=== PATIENT | male | born 1980 | race Caucasian/White ===

== ENCOUNTER 2024-02-18 19:17 | Emergency (ER) | payer BC ==
--- NOTE | 2024-02-18 19:55 | ED ---
Animal Bite HPI - General Chief Complaint: Animal Bite Stated Complaint: dog bite Time Seen by Provider: 02/18/24 19:37 Source: patient Mode of arrival: ambulatory Limitations: no limitations - History of Present Illness Initial Comments: 43-year-old male presenting to the ED with a chief complaint of dog bite to his left hand. Patient states that his dogs were fighting and he attempted to break them up. While they are fighting he stuck his hand in between both dogs and one of the dogs ended up biting his left hand prompting presentation to the ED for further evaluation. Reports that his dogs were both acting normally. States that they are fully vaccinated, including rabies. No other injuries at this time. Tetanus status up-to-date. No other complaints. - Related Data Previous Rx's Medication Instructions Recorded Doxycycline [Vibramycin] 100 mg PO BID 14 Days #28 capsule 02/18/24 Allergies Allergy/AdvReac Type Severity Reaction Status Date / Time Penicillins AdvReac Unknown Verified 02/18/24 19:33 Childhood Review of Systems ROS Statement: Those systems with pertinent positive or pertinent negative responses have been documented in the HPI. ROS Other: All systems not noted in ROS Statement are negative. Past Medical History Past Medical History: No Reported History History of Any Multi-Drug Resistant Organisms: None Reported Past Surgical History: No Surgical Hx Reported Past Psychological History: No Psychological Hx Reported Smoking Status: Current every day smoker Past Alcohol Use History: None Reported Past Drug Use History: None Reported General Exam Limitations: no limitations General appearance: alert Eye exam: Present: normal appearance Neck exam: Present: normal inspection Respiratory exam: Present: normal lung sounds bilaterally Cardiovascular Exam: Present: regular rate, normal rhythm GI/Abdominal exam: Present: soft Extremities exam: Present: other (Left hand with large skin tear/puncture wound on the dorsal surface measuring approx 4 cm long 3 cm wide. with some smaller superficial puncture wounds.) Neurological exam: Present: alert, oriented X3 Skin exam: Present: warm, dry Course Vital Signs 02/18/24 19:30 Temperature 98 F Pulse Rate 90 Respiratory 18 Rate Blood Pressure 138/102 O2 Sat by Pulse 97 Oximetry Procedures - Laceration Laceration #1 Site: hand Size (cm): 4 Description: irregular Depth: simple, single layer Anesthesia Technique: local infiltration Amount (mls): 2 Pre-repair: wound explored, irrigated extensively, deep structures intact Type of Sutures: nylon Size of Sutures: 4-0 Number of Sutures: 2 Technique: simple, interrupted Patient Tolerated Procedure: well, no complications Medical Decision Making - Medical Decision Making Was pt. sent in by a medical professional or institution (SPENCER Mathews, CERTIFICATION AND SELECTION SPECIALIST, urgent care, hospital, or group home...) When possible be specific @ -No Did you speak to anyone other than the patient for history (EMS, parent, family, police, friend...)? What history was obtained from this source @ -No Did you review nursing and triage notes (agree or disagree)? Why? @ -I reviewed and agree with nursing and triage notes Were old charts reviewed (outside hosp., previous admission, EMS record, old EKG, old radiological studies, urgent care reports/EKG's, group home records)? Report findings @ -No old charts were reviewed Differential Diagnosis (chest pain, altered mental status, abdominal pain women, abdominal pain men, vaginal bleeding, weakness, fever, dyspnea, syncope, headache, dizziness, GI bleed, back pain, seizure, CVA, palpatations, mental health, musculoskeletal)? @ -Differential Musculoskeletal Muscular strain, contusion, ligament sprain, fracture, arthritis, septic arthritis, bursitis, cellulitis, muscle spasm, nerve compression, DVT, arterial occlusion, herpes zoster, electrolyte abnormality, tumor.... This is not meant to be in all inclusive list EKG interpreted by me (3pts min.). @ -None X-rays interpreted by me (1pt min.). @ -None done CT interpreted by me (1pt min.). @ -None done U/S interpreted by me (1pt. min.). @ -None done What testing was considered but not performed or refused? (CT, X-rays, U/S, labs)? Why? @ -None What meds were considered but not given or refused? Why? @ -None Did you discuss the management of the patient with other professionals (professionals i.e. SPENCER Mathews, CERTIFICATION AND SELECTION SPECIALIST, lab, RT, psych nurse, clinical social worker, poultry helper, teacher, fiscal officer, case management director)? Give summary @ -No Was smoking cessation discussed for >3mins.? @ -No Was critical care preformed (if so, how long)? @ -No Were there social determinants of health that impacted care today? How? (Homeles sness, low income, unemployed, alcoholism, drug addiction, transportation, low edu. Level, literacy, decrease access to med. care, halfway, rehab)? @ -No Was there de-escalation of care discussed even if they declined (Discuss DNR or withdrawal of care, Hospice)? DNR status @ -No What co-morbidities impacted this encounter? (DM, HTN, Smoking, COPD, CAD, Cancer, CVA, ARF, Chemo, Hep., AIDS, mental health diagnosis, sleep apnea, morbid obesity)? @ -None Was patient admitted / discharged? Hospital course, mention meds given and route, prescriptions, significant lab abnormalities, going to OR and other pertinent info. @ -Discharge 43-year-old male presenting to the ED with a chief complaint of dog bite to his left hand. Was trying to break up his dogs. Dogs are fully vaccinated including rabies. Upon reevaluation, patient reports unsure what his tetanus status is, therefore this was updated. X-ray revealed no evidence of acute fractures. On examination did have a large gaping wound to the dorsal surface of his left hand. This was loosely approximated. For further details please see the procedure note. Prior to procedure, this was soaked in sterile saline and Betadine solution. Also had extensive irrigation with 2 L of sterile saline/Betadine solution. Does note allergy to penicillins and therefore, discharged home with prescription for doxycycline. Provided referral to see hand. X-ray showed no acute fracture or dislocation however some soft tissue swelling with multiple small foci of subcu gas with clustered radiodensities suggestive of foreign bodies. Discussed close return precautions with patient and family who verbalized agreement. Undiagnosed new problem with uncertain prognosis? @ -No Drug Therapy requiring intensive monitoring for toxicity (Heparin, Nitro, Insulin, Cardizem)? @ -No Were any procedures done? @ -No Diagnosis/symptom? @ -Dog bite, left hand Acute, or Chronic, or Acute on Chronic? @ -Acute Uncomplicated (without systemic symptoms) or Complicated (systemic symptoms)? @ -Uncomplicated Side effects of treatment? @ -No Exacerbation, Progression, or Severe Exacerbation? @ -No Poses a threat to life or bodily function? How? (Chest pain, [place], [place], pneumonia, PE, COPD, DKA, ARF, appy, cholecystitis, CVA, Diverticulitis, Homicidal, Suicidal, threat to staff... and all critical care pts) @ -Possibly however at this time unlikely. Disposition Clinical Impression: Dog bite Disposition: HOME SELF-CARE Condition: Good Instructions (If sedation given, give patient instructions): Animal Bite (ED), Care For Your Stitches (ED) Additional Instructions: Please return to the Emergency Department if symptoms worsen or any other concerns. Please follow-up with orthopedic hand surgery. Take antibiotics as prescribed. Monitor for signs of infection including redness, warmth, swelling, increasing pain, fever. Please return in 10 to 14 days for suture removal. Prescriptions: Doxycycline [Vibramycin] 100 mg PO BID 14 Days #28 capsule Is patient prescribed a controlled substance at d/c from ED?: No Referrals: Gustavo Lemus MD [Primary Care Provider] - 1-2 days Nata Fields DO [Doctor of Osteopathic Medicine] - 1-2 days Time of Disposition: 22:05
[2024-02-18] MEDS: MORPHINE SULFATE 4 MG/ML SYRINGE IM STA (19:58)
[2024-02-18 20:05] VITALS: RESP 18
[2024-02-18] MEDS: DIPH,PERTUS(ACELL)TETVAC-LF 0.5 ML VIAL IM ONE (20:11)
[2024-02-18] MEDS: ACETAMINOPHEN TAB 500 MG TAB PO STA (20:49)
--- NOTE | 2024-02-18 21:20 | XR ---
EXAMINATION TYPE: XR hand complete LT DATE OF EXAM: 02/18/2024 8:08 PM CLINICAL INDICATION:Male, 43 years old with history of s/p dog bite r/o fx; [facility] COMPARISON: None TECHNIQUE: 3 views left hand. FINDINGS: Osseous mineralization appears appropriate. No destructive bony lesion. No acute fracture or dislocat ion. Joint spaces are maintained. There is soft tissue swelling with multiple small foci of subcutane ous gas along the dorsum of the hand, as well as a cluster of tiny radiodensities which project betwe en the mid metacarpals of the second and third digits. These could be calcifications or other foreign debris, probably not metallic. IMPRESSION: 1. No fracture or dislocation. 2. Soft tissue swelling with multiple small foci of subcutaneous gas along the dorsum of the hand. C luster of tiny radiodensities suggestive of foreign bodies.
[2024-02-18] MEDS: BACITRACIN OINT 1 EACH PACKET TOPICAL ONE (21:56)
[2024-02-18] MEDS: KETOROLAC 15 MG/ML 1 ML VIAL IM STA (21:56)
[2024-02-18] MEDS: DOXYCYCLINE 100 MG CAP PO STA (22:15)
[2024-02-18 22:35] VITALS: BP 140/86; PULSE 88; TEMP 98.1
== END 2024-02-18 22:25 | disposition home or self-care (01) ==
LOC: EC 19:17
DX: S61.452A Open bite of left hand, initial encounter (principal); F17.200 Nicotine dependence, unspecified, uncomplicated; Z88.0 Allergy status to penicillin; Z23 Encounter for immunization; W54.0XXA Bitten by dog, initial encounter
CPT/HCPCS: 73130; 90715; 99284; 90471; 96372 ×2; 12002; J2270; J1885

== ENCOUNTER 2024-02-20 17:58 | Inpatient (IN) | payer BC ==
[2024-02-20] MEDS ORDERED: VANCOMYCIN 1,000 MG in SODIUM CHLORIDE 0.9% 250 ML IVPB STA (18:25)
[2024-02-20] MEDS ORDERED: VANCOMYCIN IV PER PHARMACY 1 EACH MISC MISCELLANE PRN (18:30)
[2024-02-20] MEDS: AMPICILLIN-SULBACTAM 3 GM in SODIUM CHLORIDE 0.9% 100 ML IVPB STA (19:34)
[2024-02-20 19:58] LABS: Basophils # (A) 0.1 k/uL (0-0.2); Basophils % (A) 1 %; Eosinophils # (A) 0.2 k/uL (0-0.7); Eosinophils % (A) 2 %; HCT 40.5 % (39.0-53.0); HGB 13.9 gm/dL (13.0-17.5); Lymphocytes % (A) 21 %; MCH 29.4 pg (25.0-35.0); MCHC 34.4 g/dL (31.0-37.0); MCV 85.5 fL (80.0-100.0); Mean Platelet Volume 7.5; Monocytes # (A) 0.6 k/uL (0-1.0); Monocytes % (A) 6 %; Neutrophils # (A) 6.5 k/uL (1.3-7.7); Neutrophils % (A) 69 %; Platelet Count 270 k/uL (150-450); RBC 4.73 m/uL (4.30-5.90); RDW 13.3 % (11.5-15.5); WBC 9.4 k/uL (3.8-10.6)
[2024-02-20] MEDS: VANCOMYCIN 1,750 MG in SODIUM CHLORIDE 0.9% 500 ML 500 ML IVPB STA (20:22)
[2024-02-20 21:09] LABS: ALT 27 U/L (4-49); AST 31 U/L (17-59); African American GFR (CKD) >90 (>60 ml/min/1.73 sqM); Albumin 3.8 g/dL (3.5-5.0); Alkaline Phosphatase 69 U/L (38-126); Anion Gap 8 mmol/L; Blood Urea Nitrogen 17 mg/dL (9-20); C Reactive Protein 8.9 mg/dL (<1.0); Calcium 9.3 mg/dL (8.4-10.2); Carbon Dioxide 23 mmol/L (22-30); Chloride 106 mmol/L (98-107); Glucose 109 mg/dL (74-99); Non-African American GFR(CKD) >90 (>60 ml/min/1.73 sqM); Potassium 4.1 mmol/L (3.5-5.1); Sodium 137 mmol/L (137-145); Total Bilirubin 0.4 mg/dL (0.2-1.3); Total Protein 6.3 g/dL (6.3-8.2)
[2024-02-20] MEDS: MORPHINE SULFATE 4 MG/ML SYRINGE IVP STA (21:23)
--- NOTE | 2024-02-20 22:48 | ED ---
General Adult HPI - General Chief complaint: Extremity Injury, Upper Stated complaint: Swelling, infection of stitches in L hand Source: patient Mode of arrival: ambulatory Limitations: no limitations - History of Present Illness Initial comments: 43-year-old male seen by myself 2 days ago secondary to dog bite on his hand. At this time patient sustained a dog bite to his left hand secondary to trying to stop both of his dogs from fighting. On presentation he did have a large gaping wound to his left hand which was loosely approximated with 2 simple interrupted sutures. Was started on doxycycline outpatient secondary to unknown allergy to penicillins in the past. Today, patient presenting due to increased pain in his hand with additional warmth swelling and redness. Does note some chills as well however denies fevers. No other complaints at this time. - Related Data Previous Rx's Medication Instructions Recorded Doxycycline [Vibramycin] 100 mg PO BID 14 Days #28 capsule 02/18/24 Allergies Allergy/AdvReac Type Severity Reaction Status Date / Time Penicillins AdvReac Unknown Verified 02/20/24 18:05 Childhood Review of Systems ROS Statement: Those systems with pertinent positive or pertinent negative responses have been documented in the HPI. ROS Other: All systems not noted in ROS Statement are negative. Past Medical History Past Medical History: No Reported History History of Any Multi-Drug Resistant Organisms: None Reported Past Surgical History: No Surgical Hx Reported Past Psychological History: No Psychological Hx Reported Smoking Status: Current every day smoker Past Alcohol Use History: None Reported Past Drug Use History: None Reported General Exam Limitations: no limitations General appearance: alert, in no apparent distress Eye exam: Present: normal appearance Neck exam: Present: normal inspection Respiratory exam: Present: normal lung sounds bilaterally Cardiovascular Exam: Present: regular rate GI/Abdominal exam: Present: soft Extremities exam: Present: other (On the dorsal surface of the left hand there are 2 simple interrupted sutures with a loosely approximated wound. Sutures appear intact. There is no purulent discharge. However, there is some surrounding erythema warmth and edema on the dorsal aspect of his hand.) Neurological exam: Present: alert, oriented X3 Skin exam: Present: warm, dry Course Vital Signs 02/20/24 18:03 Temperature 98.0 F Pulse Rate 96 Respiratory 18 Rate Blood Pressure 148/81 O2 Sat by Pulse 98 Oximetry Medical Decision Making - Medical Decision Making Was pt. sent in by a medical professional or institution (SPENCER Mathews, COLOR CONSULTANT, urgent care, hospital, or residential...) When possible be specific @ -No Did you speak to anyone other than the patient for history (EMS, parent, family, police, friend...)? What history was obtained from this source @ -No Did you review nursing and triage notes (agree or disagree)? Why? @ -I reviewed and agree with nursing and triage notes Were old charts reviewed (outside hosp., previous admission, EMS record, old EKG, old radiological studies, urgent care reports/EKG's, residential records)? Report findings @ -I reviewed prior charts as it was me who saw him last. For further details please see my prior notes. Differential Diagnosis (chest pain, altered mental status, abdominal pain women, abdominal pain men, vaginal bleeding, weakness, fever, dyspnea, syncope, headache, dizziness, GI bleed, back pain, seizure, CVA, palpatations, mental health, musculoskeletal)? @ -Differential Musculoskeletal Muscular strain, contusion, ligament sprain, fracture, arthritis, septic arthritis, bursitis, cellulitis, muscle spasm, nerve compression, DVT, arterial occlusion, herpes zoster, electrolyte abnormality, tumor.... This is not meant to be in all inclusive list EKG interpreted by me (3pts min.). @ -None X-rays interpreted by me (1pt min.). @ -None done CT interpreted by me (1pt min.). @ -None done U/S interpreted by me (1pt. min.). @ -None done What testing was considered but not performed or refused? (CT, X-rays, U/S, labs)? Why? @ -None What meds were considered but not given or refused? Why? @ -None Did you discuss the management of the patient with other professionals (professionals i.e. SPENCER Mathews, COLOR CONSULTANT, lab, RT, psych nurse, social welfare administrator, energy conservation engineer, teacher, desk officer, immigration case worker)? Give summary @ -Case discussed with Dr. Lemus, who accepts admission and is in agreement with plan of care. Was smoking cessation discussed for >3mins.? @ -No Was critical care preformed (if so, how long)? @ -No Were there social determinants of health that impacted care today? How? (Homelessness, low income, unemployed, alcoholism, drug addiction, transportation, low edu. Level, literacy, decrease access to med. care, halfway, rehab)? @ -No Was there de-escalation of care discussed even if they declined (Discuss DNR or withdrawal of care, Hospice)? DNR status @ -No What co-morbidities impacted this encounter? (DM, HTN, Smoking, COPD, CAD, Cancer, CVA, ARF, Chemo, Hep., AIDS, mental health diagnosis, sleep apnea, morbid obesity)? @ -None Was patient admitted / discharged? Hospital course, mention meds given and route , prescriptions, significant lab abnormalities, going to OR and other pertinent info. @ -Admission 43-year-old male presented to the ED with infection of dog bite to his left hand previously seen 2 days ago on outpatient doxycycline. Laboratory studies reviewed. CBC shows no elevation in white blood cell count. Chemistry panel unremarkable. CRP elevated at 8.9. Vital signs stable and afebrile. Patient started on Unasyn and vancomycin here in the ED. Although patient did note an unknown allergy to penicillins, patient had no reaction to these antibiotics. Patient will be continued on these antibiotics and admitted with consult placed to Dr. Fields of hand surgery. Discussed plan of care with patient who is in agreement. Undiagnosed new problem with uncertain prognosis? @ -No Drug Therapy requiring intensive monitoring for toxicity (Heparin, Nitro, Insulin, Cardizem)? @ -No Were any procedures done? @ -No Diagnosis/symptom? @ -Status post dog bite to left hand, infection with failure of outpatient antibiotic treatment Acute, or Chronic, or Acute on Chronic? @ -Acute Uncomplicated (without systemic symptoms) or Complicated (systemic symptoms)? @ -Complicated Side effects of treatment? @ -No Exacerbation, Progression, or Severe Exacerbation? @ -No Poses a threat to life or bodily function? How? (Chest pain, [place], [place], pneumonia, PE, COPD, DKA, ARF, appy, cholecystitis, CVA, Diverticulitis, Homicidal, Suicidal, threat to staff... and all critical care pts) @ -Possibly - Lab Data Result diagrams: 02/20/24 19:06 02/20/24 19:06 Lab Results 02/20/24 02/20/24 Range/Units 19:06 19:06 WBC 9.4 (3.8-10.6) k/uL RBC 4.73 (4.30-5.90) m/uL Hgb 13.9 (13.0-17.5) gm/dL Hct 40.5 (39.0-53.0) % MCV 85.5 (80.0-100.0) fL MCH 29.4 (25.0-35.0) pg MCHC 34.4 (31.0-37.0) g/dL RDW 13.3 (11.5-15.5) % Plt Count 270 (150-450) k/uL MPV 7.5 Neutrophils % 69 % Lymphocytes % 21 % Monocytes % 6 % Eosinophils % 2 % Basophils % 1 % Neutrophils # 6.5 (1.3-7.7) k/uL Lymphocytes # 2.0 (1.0-4.8) k/uL Monocytes # 0.6 (0-1.0) k/uL Eosinophils # 0.2 (0-0.7) k/uL Basophils # 0.1 (0-0.2) k/uL Sodium 137 (137-145) mmol/L Potassium 4.1 (3.5-5.1) mmol/L Chloride 106 (98-107) mmol/L Carbon Dioxide 23 (22-30) mmol/L Anion Gap 8 mmol/L BUN 17 (9-20) mg/dL Creatinine 0.75 (0.66-1.25) mg/dL Est GFR (CKD-EPI)AfAm >90 (>60 ml/min/1.73 sqM) Est GFR (CKD-EPI)NonAf >90 (>60 ml/min/1.73 sqM) Glucose 109 H (74-99) mg/dL Calcium 9.3 (8.4-10.2) mg/dL Total Bilirubin 0.4 (0.2-1.3) mg/dL AST 31 (17-59) U/L ALT 27 (4-49) U/L Alkaline Phosphatase 69 (38-126) U/L C-Reactive Protein 8.9 H (<1.0) mg/dL Total Protein 6.3 (6.3-8.2) g/dL Albumin 3.8 (3.5-5.0) g/dL Disposition Clinical Impression: Cellulitis, Dog bite Disposition: ADMITTED IP TO [facility] Condition: Good Referrals: Gustavo Lemus MD [Primary Care Provider] - 1-2 days Time of Disposition: 22:30
[2024-02-20] MEDS ORDERED: ACETAMINOPHEN TAB 325 MG TAB PO PRN (22:52)
[2024-02-20] MEDS ORDERED: NALOXONE 0.4 MG/ML 1 ML VIAL IV PRN (22:52)
[2024-02-20] MEDS: SODIUM CHLORIDE 0.9% 1,000 ML IV SCH (23:04)
[2024-02-21] MEDS: HYDROmorphone 1 MG/ML 1 ML SYRINGE IVP PRN (00:30)
[2024-02-21] MEDS: IBUPROFEN 400 MG TAB PO PRN (02:29)
[2024-02-21 04:09] LABS: Erythrocyte Sedimentation Rate 15 mm/Hr (0-15)
[2024-02-21] MEDS: VANCOMYCIN 1,750 MG in SODIUM CHLORIDE 0.9% 500 ML 500 ML IVPB SCH (05:16)
[2024-02-21 09:05] LABS: Basophils # (A) 0.1 k/uL (0-0.2); Basophils % (A) 1 %; Eosinophils # (A) 0.2 k/uL (0-0.7); Eosinophils % (A) 2 %; HCT 40.4 % (39.0-53.0); HGB 13.6 gm/dL (13.0-17.5); Lymphocytes # (A) 1.5 k/uL (1.0-4.8); Lymphocytes % (A) 20 %; MCH 29.4 pg (25.0-35.0); MCHC 33.6 g/dL (31.0-37.0); MCV 87.3 fL (80.0-100.0); Mean Platelet Volume 7.4; Monocytes # (A) 0.5 k/uL (0-1.0); Monocytes % (A) 7 %; Neutrophils # (A) 5.1 k/uL (1.3-7.7); Neutrophils % (A) 68 %; Platelet Count 235 k/uL (150-450); RBC 4.63 m/uL (4.30-5.90); RDW 13.4 % (11.5-15.5); WBC 7.5 k/uL (3.8-10.6)
[2024-02-21 09:38] LABS: African American GFR (CKD) >90 (>60 ml/min/1.73 sqM); Non-African American GFR(CKD) >90 (>60 ml/min/1.73 sqM)
--- NOTE | 2024-02-21 10:02 | P.CNOR ---
History of Present Illness - [facility] Consult date: 02/21/24 Consult reason: other (Infected left hand) History of present illness: 43-year-old gentleman who presented to the emergency room on Friday with a dog bite along the dorsum of his left hand. He underwent irrigation with repair of his laceration was placed on oral antibiotics. On Friday he noted increased swelling and redness and presented back to the emergency room. He was admitted and started on IV antibiotics. He states that the redness in the dorsum of the forearm has resolved since admission. He still feels his hand is quite tight. A consult was requested for this infection. Review of Systems Constitutional: Reports as per [facility] Past Medical History Past Medical History: No Reported History History of Any Multi-Drug Resistant Organisms: None Reported Past Surgical History: No Surgical Hx Reported Past Anesthesia/Blood Transfusion Reactions: No Reported Reaction Past Psychological History: No Psychological Hx Reported Smoking Status: Current every day smoker Past Alcohol Use History: None Reported Past Drug Use History: None Reported Medications and Allergies Home Medications Medication Instructions Recorded Confirmed Type Doxycycline [Vibramycin] 100 mg PO BID 14 Days #28 capsule 02/18/24 Rx Allergies Allergy/AdvReac Type Severity Reaction Status Date / Time Penicillins AdvReac Unknown Verified 02/20/24 18:05 Childhood Physical Examination Osteopathic Statement: *. No significant issues noted on an osteopathic structural exam other than those noted in the History and Physical/Consult. There is diffuse redness noted along the dorsum of the left hand. There is a jagged laceration measuring about 2 cm with a couple of nylon sutures through. The patient is able to move his fingers without significant discomfort he does have limited range of motion. He has good perfusion distally. There is a good radial pulse present. There is no evidence of any more proximal erythema or tenderness. There is no evidence clinically for infective tenosynovitis. Results - Labs Labs: Abnormal Lab Results - Last 24 Hours (Table) 02/20/24 Range/Units 19:06 Glucose 109 H (74-99) mg/dL C-Reactive Protein 8.9 H (<1.0) mg/dL H & H 02/20/24 02/21/24 Range/Units 19:06 08:35 Hgb 13.9 13.6 (13.0-17.5) gm/dL Hct 40.5 40.4 (39.0-53.0) % Result Diagrams: 02/21/24 08:35 02/21/24 08:35 Assessment and Plan Assessment: Left dorsal hand cellulitis with history of dog bite Plan: I discussed the issue with the patient and his was present. At this point I will tentatively boarded him for irrigation and debridement of his left hand for tomorrow. I reviewed the procedure, risks, complications and recovery. He is agreeable and consent regarding the procedure be obtained. All questions were answered to the patient and his 's satisfaction. Time with Patient: Less than 30
[2024-02-22] MEDS: LACTATED RINGERS 1,000 ML IV ONE (12:03)
--- NOTE | 2024-02-22 12:39 | P.OP ---
Date of Procedure: 02/22/24 Preoperative Diagnosis: Left dorsal hand cellulitis Postoperative Diagnosis: Left dorsal hand abscess Procedure(s) Performed: Incision with irrigation debridement left dorsal hand abscess Anesthesia: STEVEN Surgeon: Bora Godwin Artificial Pearl Maker #1: Karl Sexton Estimated Blood Loss (ml): 10 Pathology: none sent Condition: stable Disposition: PACU Indications for Procedure: 43-year-old gentleman seen with a dorsal hand cellulitis with history of dog bite wound and failed outpatient oral antibiotic treatment. I discussed incision with irrigation debridement. Patient was agreeable and consent was obtained. Operative Findings: See description of procedure Description of Procedure: Patient was taken to the operative suite. He underwent a general anesthetic by the department of anesthesia. A well-padded tourniquet placed proximal left upper extremity. Left upper extremity was prepped and draped in the normal sterile orthopedic fashion. We elevated the extremity insufflated tourniquet to 250. We opened up the wound and noted purulent fluid. Cultures were obtained of that. It was evacuated. I extended the wound radially utilizing a 15 blade about 1 cm. We noted some more abscess/purulent fluid evacuated that. I used a #15 blade and incisionally debrided out some necrotic subcutaneous tissue. I now incisionally debrided out some abnormal appearing skin margins utilizing the #15 blade.. I did note the extensor tendons and they appeared intact. We now explored the wound and found no other significant necrotic or abnormal appearing tissue. We now irrigated the wound out utilizing 1000 cc of antibiotic irrigant. I now explored the wound again and did not note any additional necrotic tissue. I now repaired the skin margins loosely with nylon suture. Sterile dressings were applied. Tourniquet was released with immediate cap refill of all digits noted. Patient was awakened and transferred to recovery in stable condition. Jose Guadalupe PALMER assisted with this procedure.
[2024-02-22] MEDS: HYDROmorphone 0.5 MG/0.5 ML SYRINGE IVP ONE ×3 (12:56→13:24)
[2024-02-22] MEDS: VANCOMYCIN TROUGH DUE 1 EACH MISC MISCELLANE ONE (14:56)
[2024-02-22 15:13] LABS: African American GFR (CKD) >90 (>60 ml/min/1.73 sqM); Non-African American GFR(CKD) >90 (>60 ml/min/1.73 sqM)
--- NOTE | 2024-02-23 00:08 | HP ---
HISTORY AND PHYSICAL CHIEF COMPLAINT: Dog bite with pain and swelling in the left hand. HISTORY OF PRESENT ILLNESS: This is first admission for this 43-year-old white male. Three or 4 days ago, he sustained a dog bite in left hand from one of his own pets that has been vaccinated. He came to the emergency room where the lesion on the dorsum of the hand was sutured and he was sent home on doxycycline. There was a question of whether or not he is allergic to penicillin and he probably is not. He came back in to the hospital with intense pain, redness, swelling in the left hand, and inability to move the fingers. He was admitted. REVIEW OF SYSTEMS: Otherwise negative except for the hand. Past medical history, family history, personal and social histories are all normal and unremarkable. He is right-handed. PHYSICAL EXAMINATION: HEENT: Head, ears, eyes, nose, mouth, and throat were normal. CHEST: Clear. CARDIAC: Normal. Remainder of the exam is normal except for the left hand which is intensely swollen and erythematous. He can hardly move his fingers at all. Tips of the fingers are viable. He does have sensation in the fingers. There is a laceration on the dorsum of the hand with 2 sutures. IMPRESSION: Dog bite of the left hand with cellulitis and deep space infection. PLAN: 1. IV antibiotics with Unasyn and vancomycin. 2. Orthopedic consult for surgical drainage. MMODL / IJN: [id number] /
[2024-02-23] MEDS: VANCOMYCIN 1,750 MG in SODIUM CHLORIDE 0.9% 500 ML 500 ML IVPB SCH (01:19)
--- NOTE | 2024-02-23 06:32 | PN ---
PROGRESS NOTE DATE OF SERVICE: 02/21/2024 CHIEF COMPLAINT: Infected dog bite in the left hand. HISTORY OF PRESENT ILLNESS: This gentleman's left hand is very tensely swollen and inflamed. He is having quite a bit of discomfort. He cannot move his fingers, only very little. There is no problem with viability of the fingertips. PHYSICAL EXAMINATION: Otherwise normal. IMPRESSION: Infected dog bite with cellulitis and probable deep space infection in his left hand. PLAN: 1. Continue with IV antibiotics. 2. Remove the 2 sutures that were placed in the emergency room. 3. Await surgical debridement. MMODL / IJN: [id number] /
--- NOTE | 2024-02-23 07:35 | CDI ---
Documentation Clarification Form Date: 02/23/2024 07:16:36 AM From: Sallie Gotti RN CCDS Phone: [phone] Admit Date: 02/20/2024 10:57:00 PM Patient Name: Luis Eduardo Torrez Visit Number: [id number] Discharge Date: ATTENTION: The Clinical Documentation Specialists (CDI) and [facility] Coding Staff appreciate your assistance in clarifying documentation. Please respond to the clarification below the line at the bottom and electronically sign. The CDI & [facility] Coding staff will review the response and follow-up if needed. Please note: Queries are made part of the Legal Health Record. If you have any questions, please contact the author of this message via ITS. Dr. Bora Godwin A debridement is documented 02/21, procedure note.. Additional clarification regarding the procedure is requested. History/Risk Factors: 43 y/o male presents to ED with increased pain from dog bite / wound. . He was seen at ED two days prior for a dog wound on his hand trying to stop dogs from fighting, irrigated had two sutures to the gaping wound and started on doxycycline. No reported medical history.02/19 ED note. Clinical Indicators: 02/21, Procedure note: I used a #15 blade and incisionally debrided out some necrotic subcutaneous tissue. I now incisionally debrided out some abnormal appearing skin margins utilizing the #15 blade. Treatment: Irrigation, debridement and 03/01 Vancomycin IVPB x 1; 02/20 Vancomycin IVPB Q8h, Please clarify the type of procedure performed: [ ] Excisional debridement (the removal of necrotic, devitalized tissue or slough by means of cutting away of tissue) [ ] Non-excisional debridement (the removal of necrotic, devitalized tissue or slough by means of flushing, brushing, or washing. (Irrigation) [ ] Other; please specify [ ] Unable to determine Five elements required for accurate and compliant documentation of a debridement: Technique used (e.g., excisional, excised, cutting, brushing, jet lavage etc.) Instrument(s) used (e.g., scalpel, curette, etc.) Nature of the tissue removed (e.g., necrotic, devitalized tissues, non-viable tissue, etc.) Appearance and size of the wound (e.g., down to fresh bleeding tissue, 7cm x 10cm, etc.) Depth of the debridement* (e.g., skin, subcutaneous tissue, fascia, muscle, bone, etc.) (Template Last Revised: January 2021) MTDD
--- NOTE | 2024-02-23 08:18 | PN ---
PROGRESS NOTE CHIEF COMPLAINT: Cellulitis and abscess of the left hand. HISTORY OF PRESENT ILLNESS: The patient presented to one of the operating room today. Despite taking the sutures out yesterday, the hand did not open and drained. He is having a lot of trouble with movement of the fingers. PHYSICAL EXAMINATION: EXTREMITIES: Intense swelling and redness in the left hand and fingers. IMPRESSION: Infected dog bite with cellulitis and deep space infection of the left hand. PLAN: Surgery today. MMODL / IJN: [id number] /
[2024-02-23] MEDS: traMADol 50 MG TAB PO PRN (12:06)
--- NOTE | 2024-02-23 14:28 | P.PN ---
Subjective Progress Note Date: 02/23/24 Principal diagnosis: Status post I&D left hand Patient evaluated bedside, he is resting comfortably. He does note some generalized discomfort in the hand. Postop bandages in good position and condition. Patient does note some numbness and tingling in the first and second digit more on the MCP joint. No headaches, lightheadedness, chest pain, fevers or chills. Objective - Vital Signs Vital signs: Vital Signs Temp 98.4 F 02/23/24 13:23 Pulse 83 02/23/24 13:23 Resp 16 02/23/24 13:23 BP 133/68 02/23/24 13:23 Pulse Ox 97 02/23/24 13:23 FiO2 Intake & Output 02/22/24 02/23/24 02/23/24 18:59 06:59 18:59 Intake Total 550 2600 Output Total 15 Balance 535 2600 Weight 113.398 kg Intake: IV 550 Intake, IV Titration 2000 Amount Sodium Chloride 0.9% 1, 1500 000 ml @ 130 mls/hr IV . Q7H42M [facility] Rx#:[id number] Vancomycin 1,750 mg In 500 Sodium Chloride 0.9% 500 ml 500 ml @ 167 mls/hr IVPB Q12H [facility] Rx#: [id number] Oral 600 Output: Estimated Blood Loss 15 Other: Voiding Method Toilet Toilet Toilet Urinal # Voids 1 3 # Bowel Movements 1 - Exam Left upper extremity: Postop bandages in good position and condition, skin is warm to touch throughout the fingers. Patient is able to wiggle all the fingers no difficulty. Cap refills less than 3 seconds. - Labs CBC & Chem 7: 02/21/24 08:35 02/22/24 14:37 Labs: Abnormal Lab Results - Last 24 Hours (Table) 02/22/24 Range/Units 14:37 Creatinine 0.62 L (0.66-1.25) mg/dL Microbiology - Last 24 Hours (Table) 02/20/24 19:00 Blood Culture - Preliminary Blood 02/20/24 18:45 Blood Culture - Preliminary Blood Assessment and Plan Assessment: Postoperative day #1 status post I&D left hand abscess Dog bite Plan: Pain control, try to transition to oral medications DVT prophylaxis per primary medical service Monitor surgical dressing, plan for dressing change on 02/24/2024 Infectious disease has been consulted to help with outpatient antibiotics Other medical specialty recommendations appreciated Await culture and sensitivity results Further recommendations to follow Time with Patient: Less than 30
[2024-02-23] MEDS: AMPICILLIN-SULBACTAM 3 GM in SODIUM CHLORIDE 0.9% 100 ML IVPB SCH (18:03)
[2024-02-23] MEDS: HYDROcodone/APAP 5-325MG 1 EACH TAB PO PRN (20:17)
--- NOTE | 2024-02-23 20:29 | PN ---
PROGRESS NOTE DATE OF SERVICE: 02/23/2024 CHIEF COMPLAINT: Abscess and cellulitis of the left hand. HISTORY OF PRESENT ILLNESS: This gentleman is doing well. The hand was drained yesterday. He still has quite a bit of the swelling, pain and stiffness in the left hand with very little movement of the fingers at this point. Circulation is adequate. IMPRESSION: Infected dog bite of the left hand with cellulitis and abscess. PLAN: Continue with IV antibiotics. MMODL / IJN: [id number] /
--- NOTE | 2024-02-23 23:21 | P.CONS ---
History of Present Illness - Reason for Consult Consult date: 02/23/24 Antibiotic, s/p dog bite Requesting physician: Karl Sexton - Chief Complaint Left hand pain and swelling x few days - History of Present Illness Patient is a 43-year-old male with no significant past medical history who has been bitten by his dog to the left hand as he was trying to stop both the dogs from fighting it happened on Friday patient presented initially to the hospital with the patient did have 2 stitches placed to close the laceration and was discharged on doxycycline presenting back to the hospital 2 days later with worsening pain swelling and redness to the left hand area patient was describing pain to be sharp throbbing almost under 10 in severity without any radiation with associated swelling and redness but no foul-smelling drainage patient on presentation to the hospital was afebrile and no fever have been recorded subsequently patient was not tachycardic hypotensive or hypoxic and did have a white count of 9.4 creatinine 0.75 patient was evaluated by orthopedics and the patient was taken to the OR yesterday afternoon and status post I&D and debridement of the left dorsal hand abscess culture has been obtained which are currently pending patient is being treated with the vancomycin infectious disease was consulted today after the patient has been hospital for 3 days for further management of antibiotic therapy Review of Systems Positive point and negatives has been mentioned in the HPI, complete review of systems was performed and all other systems are negative Past Medical History Past Medical History: No Reported History History of Any Multi-Drug Resistant Organisms: None Reported Past Surgical History: No Surgical Hx Reported Past Anesthesia/Blood Transfusion Reactions: No Reported Reaction Past Psychological History: No Psychological Hx Reported Smoking Status: Current every day smoker Past Alcohol Use History: None Reported Past Drug Use History: None Reported Medications and Allergies Home Medications Medication Instructions Recorded Confirmed Type Cholecalciferol (Vitamin D3) 1,250 mcg PO TH 02/21/24 02/21/24 History [Vitamin D3 (1250 Mcg = 50,000 Iu)] Ibuprofen [Motrin] 800 mg PO QID PRN 02/21/24 02/21/24 History Amoxic-Pot Clav 875-125Mg 1 tab PO Q12HR 10 Days #20 tab 02/26/24 Rx [Augmentin 875-125] Allergies Allergy/AdvReac Type Severity Reaction Status Date / Time No Known Allergies Allergy Verified 02/23/24 16:57 Physical Exam Vitals: Vital Signs Temp Pulse Resp BP Pulse Ox 02/23/24 13:23 98.4 F 83 16 133/68 97 02/23/24 07:24 97.6 F 73 16 123/69 97 02/23/24 01:20 98.4 F 76 18 121/55 96 02/22/24 20:00 99.1 F 95 16 124/70 95 02/22/24 14:53 98.1 F 79 18 116/68 97 Intake and Output 02/22/24 02/23/24 02/23/24 22:59 06:59 14:59 Intake Total 2600 Balance 2600 Intake: Intake, IV Titration 2000 Amount Sodium Chloride 0.9% 1, 1500 000 ml @ 130 mls/hr IV . Q7H42M [facility] Rx#:[id number] Vancomycin 1,750 mg In 500 Sodium Chloride 0.9% 500 ml 500 ml @ 167 mls/hr IVPB Q12H [facility] Rx#: [id number] Oral 600 Other: Voiding Method Toilet Toilet # Voids 1 3 GENERAL DESCRIPTION: Middle-aged male lying in bed, no distress. No tachypnea or accessory muscle of respiration use. HEENT: Shows Pallor , no scleral icterus. Oral mucous membrane is dry. No pharyngeal erythema or thrush NECK: Trachea central, no thyromegaly. LUNGS: Unlabored breathing. Clear to auscultation anteriorly. No wheeze or crackle. HEART: S1, S2, regular rate and rhythm. No loud murmur ABDOMEN: Soft, no tenderness , guarding or rigidity, no organomegaly EXTREMITIES: Left hand dorsum but have significant swelling redness no drainage was noticed SKIN: No rash, no masses palpable. NEUROLOGICAL: The patient is awake, alert, oriented x3, mood and affect normal. Results CBC & Chem 7: 02/26/24 07:16 02/26/24 07:16 Labs: Abnormal Lab Results - Last 24 Hours (Table) 02/22/24 Range/Units 14:37 Creatinine 0.62 L (0.66-1.25) mg/dL Microbiology - Last 24 Hours (Table) 02/20/24 19:00 Blood Culture - Preliminary Blood 02/20/24 18:45 Blood Culture - Preliminary Blood Assessment and Plan (1) Cellulitis of left hand Status: Acute Code(s): L03.114 - CELLULITIS OF LEFT UPPER LIMB SNOMED Code(s): 75224999121020876 (2) Penicillin allergy Status: Acute Code(s): Z88.0 - ALLERGY STATUS TO PENICILLIN SNOMED Code(s): 03866609 (3) Dog bite Status: Acute Code(s): W54.0XXA - BITTEN BY DOG, INITIAL ENCOUNTER SNOMED Code(s): 193798983 Plan: 1patient with a acute cellulitis to the left hand from a dog bite failing outpatient doxycycline therapy 2-patient with a penicillin allergy as a child unknown reaction however the patient tells me that he has taken amoxicillin without any problem clinical doubt true penicillin allergy and she will be taken of the chart 3-I will start the patient on Unasyn 3 g every 6 hours while waiting for the culture to finalize and continue with the vancomycin 4-local care to continue per surgery, discharge antibiotic on the basis of final culture We will follow on clinical condition and cultures to further adjust medication if needed Thank you for this consultation we will follow the patient along with you Dictation was produced using [employer] dictation software. please excuse any grammatical, word or spelling errors. Time with Patient: Greater than 30
[2024-02-24 07:40] LABS: African American GFR (CKD) >90 (>60 ml/min/1.73 sqM); Non-African American GFR(CKD) >90 (>60 ml/min/1.73 sqM)
[2024-02-24] MEDS: HYDROmorphone 0.5 MG/0.5 ML SYRINGE IVP PRN (12:31)
--- NOTE | 2024-02-24 12:49 | P.PN ---
Subjective Progress Note Date: 02/24/24 Principal diagnosis: Status post I&D left hand Patient evaluated bedside, he is resting comfortably. He is feeling much better today, minimal pain in the hand. No denies fever or chills, headaches, lightheadedness, chest pain, fevers or chills. Objective - Vital Signs Vital signs: Vital Signs Temp 97.6 F 02/24/24 08:00 Pulse 71 02/24/24 08:00 Resp 16 02/24/24 08:00 BP 123/77 02/24/24 08:00 Pulse Ox 98 02/24/24 08:00 FiO2 Intake & Output 02/23/24 02/24/24 02/24/24 18:59 06:59 18:59 Intake Total 1560 Balance 1560 Intake: Intake, IV Titration 1560 Amount Sodium Chloride 0.9% 1, 1560 000 ml @ 130 mls/hr IV . Q7H42M [facility] Rx#:[id number] Other: Voiding Method Toilet Toilet Toilet # Voids 3 - Exam Left upper extremity: Postop bandages removed today, incision is well healing, sutures are in good position. Redness and swelling much improved, skin is warm to touch throughout the fingers. Patient is able to wiggle all the fingers no difficulty. Numbness in the 2-3rd webspace, and dorsum of the hand over at the MCP joint. Cap refills less than 3 seconds. - Labs CBC & Chem 7: 02/21/24 08:35 02/24/24 06:46 Labs: Microbiology - Last 24 Hours (Table) 02/20/24 19:00 Blood Culture - Preliminary Blood 02/20/24 18:45 Blood Culture - Preliminary Blood 02/22/24 12:28 Gram Stain - Preliminary Hand - Left Wound Culture - Preliminary Assessment and Plan Assessment: Postoperative day #2 status post I&D left hand abscess Dog bite Plan: Pain control, try to transition to oral medications DVT prophylaxis per primary medical service Discussed with nursing, Start Hibiclens soaks twice daily, basic dressing then can be applied. Ice the dorsum of the hand to help with swelling await culture and sensitivity results, infectious disease recommendations appreciated Other medical specialty recommendations appreciated will continue to follow during hospital stay Time with Patient: Less than 30
--- NOTE | 2024-02-24 15:12 | P.PN ---
Subjective Progress Note Date: 02/24/24 Principal diagnosis: Reason for follow-up is left hand dog bite cellulitis Patient is a 43-year-old male with no significant past medical history who has been bitten by his dog to the left hand admitted to hospital worsening swelling redness diagnosed with cellulitis did have surgical debridement and cultures are currently pending. On today's evaluation that is 02/24/2024,the patient denies any fever or any chills, patient is breathing comfortably on room air, the patient denies chest pain shortness of breath and no significant cough, patient denies abdominal pa in, no nausea vomiting or diarrhea. Pain to the left Decreased intensity. Patient did have a creatinine 0.618 no CBC was done today cultures are pending Objective - Vital Signs Vital signs: Vital Signs Temp 97.6 F 02/24/24 08:00 Pulse 71 02/24/24 08:00 Resp 16 02/24/24 08:00 BP 123/77 02/24/24 08:00 Pulse Ox 98 02/24/24 08:00 FiO2 Intake & Output 02/23/24 02/24/24 02/24/24 18:59 06:59 18:59 Intake Total 1560 Balance 1560 Intake: Intake, IV Titration 1560 Amount Sodium Chloride 0.9% 1, 1560 000 ml @ 130 mls/hr IV . Q7H42M [facility] Rx#:[id number] Other: Voiding Method Toilet Toilet Toilet # Voids 3 - Exam GENERAL DESCRIPTION: Middle-age male up in the room in no distress RESPIRATORY SYSTEM: Unlabored breathing , decreased breath sounds at bases HEART: S1 S2 regular rate and rhythm , ABDOMEN: Soft , no tenderness EXTREMITIES: Left hand dorsum incision is staged minimal swelling redness and drainage - Labs CBC & Chem 7: 02/21/24 08:35 02/24/24 06:46 Labs: Microbiology - Last 24 Hours (Table) 02/20/24 19:00 Blood Culture - Preliminary Blood 02/20/24 18:45 Blood Culture - Preliminary Blood 02/22/24 12:28 Gram Stain - Preliminary Hand - Left Wound Culture - Preliminary Assessment and Plan (1) Cellulitis of left hand Current Visit: Yes Status: Acute Code(s): L03.114 - CELLULITIS OF LEFT UPPER LIMB SNOMED Code(s): 56330452832722540 (2) Penicillin allergy Current Visit: Yes Status: Acute Code(s): Z88.0 - ALLERGY STATUS TO PENICILLIN SNOMED Code(s): 71795167 (3) Dog bite Current Visit: Yes Status: Acute Code(s): W54.0XXA - BITTEN BY DOG, INITIAL ENCOUNTER SNOMED Code(s): 164342396 Plan: 1patient with a acute cellulitis to the left hand from a dog bite failing outpatient doxycycline therapy 2-patient with a penicillin allergy as a child unknown reaction however the patient tells me that he has taken amoxicillin without any problem clinical doubt true penicillin allergy and she will be taken of the chart 3 patient has tolerated Unasyn to continue along with the vancomycin while waiting for the culture to finalize to determine his discharge antibiotics Dictation was produced using [employer] dictation software. please excuse any grammatical, word or spelling errors. Time with Patient: Less than 30
[2024-02-24] MEDS: SENNOSIDES-DOCUSATE SODIUM 1 EACH TAB PO SCH (21:38)
--- NOTE | 2024-02-25 11:54 | P.PN ---
Subjective Progress Note Date: 02/25/24 Principal diagnosis: Status post I&D left hand Objective - Vital Signs Vital signs: Vital Signs Temp 97.7 F 02/25/24 08:11 Pulse 63 02/25/24 08:11 Resp 16 02/25/24 08:11 BP 129/66 02/25/24 08:11 Pulse Ox 97 02/25/24 08:11 FiO2 Intake & Output 02/24/24 02/25/24 02/25/24 18:59 06:59 18:59 Intake Total 700 Balance 700 Intake: Intake, IV Titration 700 Amount Ampicillin-Sulbactam 3 gm 200 In Sodium Chloride 0.9% 100 ml @ 200 mls/hr IVPB Q6HR [facility] Rx#:[id number] Vancomycin 1,750 mg In 500 Sodium Chloride 0.9% 500 ml 500 ml @ 167 mls/hr IVPB Q12H [facility] Rx#: [id number] Other: Voiding Method Toilet Toilet Toilet # Voids 3 - Exam Left upper extremity: Incision is healing well, sutures are in good position. Redness and swelling continue to improve, skin is warm to touch throughout the fingers. Patient is able to wiggle all the fingers no difficulty. Numbness in the 2-3rd webspace, and dorsum of the hand over at the MCP joint. Cap refills less than 3 seconds. - Labs CBC & Chem 7: 02/21/24 08:35 02/24/24 06:46 Labs: Microbiology - Last 24 Hours (Table) 02/22/24 12:28 Anaerobic Culture - Preliminary Hand - Left 02/22/24 12:28 Gram Stain - Final Hand - Left Wound Culture - Final Assessment and Plan Assessment: Postoperative day #3 status post I&D left hand abscess Dog bite Plan: Pain control, oral NSAIDs as needed DVT prophylaxis per primary medical service Continue Hibiclens soaks for the next 48 hours, basic bandaging material Final cultures show no growth, infectious disease recommendations appreciated Other medical specialty recommendations appreciated Discharge planning: On orthopedic standpoint patient is stable for discharge and follow-up in 1 week Time with Patient: Less than 30
[2024-02-25 12:35] LABS: African American GFR (CKD) >90 (>60 ml/min/1.73 sqM); Non-African American GFR(CKD) >90 (>60 ml/min/1.73 sqM)
--- NOTE | 2024-02-25 13:50 | P.PN ---
Subjective Progress Note Date: 02/25/24 Principal diagnosis: Reason for follow-up is left hand dog bite cellulitis Patient is a 43-year-old male with no significant past medical history who has been bitten by his dog to the left hand admitted to hospital worsening swelling redness diagnosed with cellulitis did have surgical debridement and cultures are currently pending. On today's evaluation that is 02/25/2024,the patient remains to be afebrile, patient is on room air not requiring supplemental oxygen and denies any shortness of breath no chest pain or cough.Patient denies having any nausea or vomiting, no abdominal pain and no diarrhea pain to the left hand has decreased in intensity. Patient creatinine 0.75 cultures so far negative Objective - Vital Signs Vital signs: Vital Signs Temp 97.7 F 02/25/24 08:11 Pulse 63 02/25/24 12:20 Resp 16 02/25/24 12:20 BP 129/66 02/25/24 08:11 Pulse Ox 97 02/25/24 08:11 FiO2 Intake & Output 02/24/24 02/25/24 02/25/24 18:59 06:59 18:59 Intake Total 700 Balance 700 Intake: Intake, IV Titration 700 Amount Ampicillin-Sulbactam 3 gm 200 In Sodium Chloride 0.9% 100 ml @ 200 mls/hr IVPB Q6HR [facility] Rx#:[id number] Vancomycin 1,750 mg In 500 Sodium Chloride 0.9% 500 ml 500 ml @ 167 mls/hr IVPB Q12H [facility] Rx#: [id number] Other: Voiding Method Toilet Toilet Toilet # Voids 3 - Exam GENERAL DESCRIPTION: Middle-age male up in the room in no distress RESPIRATORY SYSTEM: Unlabored breathing , decreased breath sounds at bases HEART: S1 S2 regular rate and rhythm , ABDOMEN: Soft , no tenderness EXTREMITIES: Left hand dorsum wound is currently dressed no drainage on the dressing - Labs CBC & Chem 7: 02/21/24 08:35 02/25/24 12:02 Labs: Microbiology - Last 24 Hours (Table) 02/22/24 12:28 Anaerobic Culture - Preliminary Hand - Left 02/22/24 12:28 Gram Stain - Final Hand - Left Wound Culture - Final Assessment and Plan (1) Cellulitis of left hand Current Visit: Yes Status: Acute Code(s): L03.114 - CELLULITIS OF LEFT UPPER LIMB SNOMED Code(s): 13218961977333931 (2) Penicillin allergy Current Visit: Yes Status: Acute Code(s): Z88.0 - SNOMED Code(s): 60271004 (3) Dog bite Current Visit: Yes Status: Acute Code(s): W54.0XXA - SNOMED Code(s): 859855757 Plan: 1patient with a acute cellulitis to the left hand from a dog bite failing outpatient doxycycline therapy 2-patient with a penicillin allergy as a child unknown reaction however the patient tells me that he has taken amoxicillin without any problem clinical doubt true penicillin allergy and has been taken out off the chart 3 patient local culture negative for MRSA we will discontinue vancomycin 1 more day of IV Unasyn before transition to oral antibiotics question concern answered Dictation was produced using [employer] dictation software. please excuse any grammatical, word or spelling errors. Time with Patient: Less than 30
--- NOTE | 2024-02-25 21:33 | PN ---
PROGRESS NOTE DATE OF SERVICE: 02/25/2024 CHIEF COMPLAINT: Abscess of the left hand and cellulitis of the right hand. HISTORY OF PRESENT ILLNESS: This gentleman is doing much better. He is able to move the fingers on the left hand much better. The area of infection on the dorsum of the right hand where he had an IV is improving. PHYSICAL EXAMINATION: He is able to move the fingers on the left hand much more effectively and swelling is going down. Right hand is improved over yesterday. IMPRESSION: 1. Abscess of the left hand following dog bite. 2. Cellulitis of the right hand. PLAN: Continue with IV antibiotics until he is cleared by Infectious Disease. MMODL / IJN: [id number] /
[2024-02-26 08:06] VITALS: RESP 20
[2024-02-26 11:25] LABS: Basophils # (A) 0.05 X 10*3/uL (0.00-0.10); Basophils % (A) 0.7 %; Eosinophils # (A) 0.25 X 10*3/uL (0.04-0.35); Eosinophils % (A) 3.7 %; HGB 12.4 g/dL (13.0-17.0); Lymphocytes # (A) 1.48 X 10*3/uL (0.90-5.00); MCH 28.4 pg (27.0-32.0); MCHC 34.4 g/dL (32.0-37.0); MCV 82.6 FL (80.0-97.0); Mean Platelet Volume 9.2 FL (9.5-12.2); Monocytes # (A) 0.56 X 10*3/uL (0.20-1.00); Monocytes % (A) 8.3 %; NRBC Per 100 WBC 0 X 10*3/uL (0.00-0.01); Neutrophils # (A) 4.35 X 10*3/uL (1.80-7.70); Neutrophils % (A) 64.9 %; Platelet Count 291 X 10*3/uL (140-440); RBC 4.36 X 10*6/uL (4.40-5.60); RDW 12.5 % (11.5-14.5); WBC 6.72 X 10*3/uL (4.50-10.00)
[2024-02-26 12:00] LABS: Blood Urea Nitrogen 9.1 mg/dL (9.0-27.0); Calcium 8.8 mg/dL (8.7-10.3); Carbon Dioxide 27.3 mmol/L (21.6-31.8); Chloride 101 mmol/L (96-109); Glucose 97 mg/dL (70-110); Sodium 140 mmol/L (135-145)
[2024-02-26 15:03] VITALS: BP 132/78; PULSE 98; TEMP 97.8
[2024-02-26] MEDS ORDERED: AMOXIC-POT CLAV 875-125MG 1 EACH TAB PO SCH (21:00)
--- NOTE | 2024-02-27 00:54 | DS ---
DISCHARGE SUMMARY CHIEF COMPLAINT: Dog bite in the left hand with swelling, erythema, pain and loss of range of motion in the fingers. HISTORY OF PRESENT ILLNESS AND PHYSICAL EXAM: Details of this man's history and physical can be found in the initial workup. LABORATORY STUDIES: While he was in the hospital, he had laboratory studies, details of which can be found in the laboratory section of his chart. COURSE IN THE HOSPITAL: After admission, he was placed on bedrest, started on intravenous fluids and IV antibiotics. He was seen by Infectious Disease and Orthopedics. He was eventually taken for an incision and drainage of the left hand, where there was a deep space abscess. After that, the hand continued to improve and he was doing well with the greatly improved range of motion in the fingers. While he was in the hospital, he developed a mild cellulitis on the dorsum of the right hand probably from an IV. He was doing well and felt he could be discharged on the and he will go home on Augmentin 875 mg twice a day, and will be seen in the office in several days. FINAL DIAGNOSES: 1. Deep space abscess and cellulitis of the left hand secondary to dog bite. 2. Cellulitis of the dorsum of the right hand secondary to IV site. OPERATIONS: Incision and drainage of left hand. CONSULTATIONS: Orthopedics and Infectious Disease. He is improved. MMODL / IJN: [id number] /
--- NOTE | 2024-02-27 12:01 | P.PN ---
Subjective Progress Note Date: 02/26/24 Principal diagnosis: Reason for follow-up is left hand dog bite cellulitis Patient is a 43-year-old male with no significant past medical history who has been bitten by his dog to the left hand admitted to hospital worsening swelling redness diagnosed with cellulitis did have surgical debridement and cultures are currently pending. On today's evaluation that is 02/26/2024, the patient continues to be afebrile, the patient is on room air and breathing comfortably, the Pt denies having any chest pain or cough, the patient denies having any abdominal pain no vomiting or any diarrhea, pain and swelling to the left hand has decreased in intensity no further drainage. The patient did have white count of 6.72, creatinine 0.7 culture has been negative Objective - Vital Signs Vital signs: Vital Signs Temp 97.7 F 02/26/24 07:45 Pulse 62 02/26/24 07:45 Resp 20 02/26/24 07:45 BP 114/65 02/26/24 07:45 Pulse Ox 97 02/26/24 07:45 FiO2 Intake & Output 02/25/24 02/26/24 02/26/24 18:59 06:59 18:59 Intake Total 240 Balance 240 Intake: Oral 240 Other: Voiding Method Toilet Toilet # Voids 1 2 - Exam GENERAL DESCRIPTION: Middle-age male up in the room in no distress RESPIRATORY SYSTEM: Unlabored breathing , decreased breath sounds at bases HEART: S1 S2 regular rate and rhythm , ABDOMEN: Soft , no tenderness EXTREMITIES: Left hand dorsum swelling redness has decreased no drainage - Labs CBC & Chem 7: 02/26/24 07:16 02/26/24 07:16 Labs: Microbiology - Last 24 Hours (Table) 02/20/24 19:00 Blood Culture - Final Blood 02/20/24 18:45 Blood Culture - Final Blood Assessment and Plan (1) Cellulitis of left hand Status: Acute Code(s): L03.114 - CELLULITIS OF LEFT UPPER LIMB SNOMED Code(s): 11240464861927489 (2) Penicillin allergy Status: Acute Code(s): Z88.0 - ALLERGY STATUS TO PENICILLIN SNOMED Code(s): 69009623 (3) Dog bite Status: Acute Code(s): W54.0XXA - BITTEN BY DOG, INITIAL ENCOUNTER SNOMED Code(s): 581668374 Plan: 1patient with a acute cellulitis to the left hand from a dog bite failing outpatient doxycycline therapy 2-patient with a penicillin allergy as a child unknown reaction however the patient tells me that he has taken amoxicillin without any problem clinical doubt true penicillin allergy and has been taken out off the chart 3 patient local culture negative for any resistant pathogen has shown improvement on Unasyn we will finish therapy with oral Augmentin prescription sent to the pharmacy and close the patient follow-up Dictation was produced using [email or web address] dictation software. please excuse any grammatical, word or spelling errors. Time with Patient: Less than 30
--- NOTE | 2024-02-27 16:33 | PN ---
PROGRESS NOTE CHIEF COMPLAINT: Abscess and cellulitis of left hand. HISTORY OF PRESENT ILLNESS: This gentleman is doing better. Pain is improving and swelling is going down. Range of motion in the fingers is improving. PHYSICAL EXAMINATION: CHEST: Clear. CARDIAC: Normal. EXTREMITIES: Left hand is better. There is an area of cellulitis on the dorsum of the right hand. IMPRESSION: 1. Abscess and cellulitis of the left hand-improving. 2. Cellulitis of the dorsum of the right hand. PLAN: Continue with IV fluids and antibiotics until he is cleared by Infectious Disease and Surgery. MMODL / IJN: [id number] /
== END 2024-02-26 14:11 | disposition home or self-care (01) | DRG 580 ==
LOC: EC 17:58 → INTOOBSV 22:57 → 5NMEDONC 22:57 → OBSVTOIN 02-24 10:14
PROVIDERS: ADMIT Family Medicine; ATTEND Family Medicine
PROC: 0JBK0ZZ Excision of Left Hand Subcutaneous Tissue and Fascia, Open Approach (ICD-10-PCS; principal; 2024-02-24)
DX: S61.452A Open bite of left hand, initial encounter (principal); L02.512 Cutaneous abscess of left hand; L03.114 Cellulitis of left upper limb; L03.113 Cellulitis of right upper limb; W54.0XXA Bitten by dog, initial encounter; F17.200 Nicotine dependence, unspecified, uncomplicated; Z88.0 Allergy status to penicillin
CPT/HCPCS: 36415; 80048; 80053; 80202; 82565; 85025; 85652; 86140; 87040; 87070; 87075; 87205; 96365; 96366; 96367; 96375; 99284